=== PATIENT | male | born 1970 | race Caucasian/White ===

== ENCOUNTER 2021-07-07 21:57 | Inpatient (IN) | payer BC ==
[~2021-07-07] VITALS: Ht 185.4 cm; Wt 93.9 kg
[2021-07-07 22:22] LABS: HEMOGLOBIN 16.7 gm/dl (14.0-17.5); RED BLOOD COUNT 5.15 M/UL (4.20-5.50); WHITE BLOOD COUNT 5.9 K/UL (4.5-11.0)
[2021-07-08] MEDS ORDERED: PROAIR DIGIHAL90 MCG INH (02:57)
[2021-07-08] MEDS ORDERED: DOXYCYCLINE MO100 MG PO (02:59)
[2021-07-09 05:58] LABS: HEMOGLOBIN 15.2 gm/dl (14.0-17.5); RED BLOOD COUNT 4.92 M/UL (4.20-5.50); WHITE BLOOD COUNT 6.4 K/UL (4.5-11.0)
[2021-07-09 06:33] LABS: BUN/CREATININE RATIO 22 (0-10)
[2021-07-10 06:58] LABS: HEMOGLOBIN 14.8 gm/dl (14.0-17.5); RED BLOOD COUNT 4.74 M/UL (4.20-5.50); WHITE BLOOD COUNT 5.5 K/UL (4.5-11.0)
[2021-07-10 07:23] LABS: BUN/CREATININE RATIO 27 (0-10)
[2021-07-11 05:46] LABS: HEMOGLOBIN 15.1 gm/dl (14.0-17.5); RED BLOOD COUNT 4.94 M/UL (4.20-5.50); WHITE BLOOD COUNT 5.6 K/UL (4.5-11.0)
[2021-07-11 06:22] LABS: BUN/CREATININE RATIO 35 (0-10)
[2021-07-12 05:30] LABS: HEMOGLOBIN 15.6 gm/dl (14.0-17.5); RED BLOOD COUNT 5.24 M/UL (4.20-5.50)
[2021-07-12 05:31] LABS: WHITE BLOOD COUNT 8.1 K/UL (4.5-11.0)
[2021-07-12 08:51] LABS: BUN/CREATININE RATIO 45 (0-10)
[2021-07-13 03:59] LABS: HEMOGLOBIN 15.1 gm/dl (14.0-17.5); RED BLOOD COUNT 5.08 M/UL (4.20-5.50)
[2021-07-13 04:31] LABS: BUN/CREATININE RATIO 42 (0-10)
[2021-07-14 05:46] LABS: HEMOGLOBIN 14.8 gm/dl (14.0-17.5); RED BLOOD COUNT 4.98 M/UL (4.20-5.50)
[2021-07-14 05:47] LABS: WHITE BLOOD COUNT 14.4 K/UL (4.5-11.0)
[2021-07-14 06:02] LABS: BUN/CREATININE RATIO 25 (0-10)
[2021-07-14 20:22] LABS: BUN/CREATININE RATIO 21 (0-10)
[2021-07-15 05:28] LABS: HEMOGLOBIN 13.4 gm/dl (14.0-17.5)
[2021-07-15 05:32] LABS: RED BLOOD COUNT 4.29 M/UL (4.20-5.50); WHITE BLOOD COUNT 8.8 K/UL (4.5-11.0)
[2021-07-15 05:49] LABS: BUN/CREATININE RATIO 28 (0-10)
[2021-07-16 05:15] LABS: HEMOGLOBIN 14.3 gm/dl (14.0-17.5); RED BLOOD COUNT 4.53 M/UL (4.20-5.50); WHITE BLOOD COUNT 10.3 K/UL (4.5-11.0)
[2021-07-16 06:02] LABS: BUN/CREATININE RATIO 36 (0-10)
[2021-07-17 05:35] LABS: HEMOGLOBIN 13.2 gm/dl (14.0-17.5); RED BLOOD COUNT 4.23 M/UL (4.20-5.50); WHITE BLOOD COUNT 13.7 K/UL (4.5-11.0)
[2021-07-17 05:59] LABS: BUN/CREATININE RATIO 48 (0-10)
--- NOTE | 2021-07-17 09:23 | NUR ---
PATIENT HAS SUBCUTANEOUS AIR NOTED IN BILATERAL CHEST AND RIGHT UPPER EXTREMITY. PATIENT HAS ASYMETRICAL CHEST EXPANSION WITH RESPIRATIONS. DR. CORTEZ NOTIFIED AND IS COMING TO ASSESS PATIENT.
[2021-07-18 05:29] LABS: HEMOGLOBIN 13.3 gm/dl (14.0-17.5); RED BLOOD COUNT 4.29 M/UL (4.20-5.50); WHITE BLOOD COUNT 12.5 K/UL (4.5-11.0)
[2021-07-18 05:51] LABS: BUN/CREATININE RATIO 43 (0-10)
--- NOTE | 2021-07-18 11:06 | NUR ---
1040: PATIENT PUT IN SUPINE POSTITION. NO EVIDENCE OF SKIN BREAKDOWN NOTED IN ON AREAS OF PRESSURE. +1 EDEMA NOTED TO THE LEFT EYE AND +2 EDEMA NOTED TO THE RIGHT EYE. SUBCUTANEOUS AIR IN THE UPPER CHEST AND ARMS HAS DECREASED. ART LINE RE-ZERO'D. VITALS ARE STABLE. CHEST X-RAY HAS BEEN OBTAINED. ABG TO BE OBTAINED AT 1200. DR. QURESHI AWARE OF SUPINATION AND WAS AT BEDSIDE FOR THE PROCEDURE.
[2021-07-19 04:48] LABS: HEMOGLOBIN 12.4 gm/dl (14.0-17.5); RED BLOOD COUNT 4.04 M/UL (4.20-5.50)
[2021-07-19 05:07] LABS: BUN/CREATININE RATIO 50 (0-10)
[2021-07-20 04:36] LABS: HEMOGLOBIN 12.8 gm/dl (14.0-17.5); RED BLOOD COUNT 4.13 M/UL (4.20-5.50); WHITE BLOOD COUNT 12.9 K/UL (4.5-11.0)
[2021-07-20 05:30] LABS: BUN/CREATININE RATIO 59 (0-10)
[2021-07-20 22:17] LABS: ACINETOBACTER BAUMANNII Not Detected (Negative); CANDIDA ALBICANS Not Detected (Negative); CANDIDA KRUSEI Not Detected (Negative); CANDIDA TROPICALIS Not Detected (Negative); ENTEROCOCCUS Not Detected (Negative); ESCHERICHIA COLI Not Detected (Negative); HAEMOPHILUS INFLUENZAE Not Detected (Negative); KLEBSIELLA OXYTOCA Not Detected (Negative); KLEBSIELLA PNEUMONIAE Not Detected (Negative); KPC-CARBAPENEM-RESISTANCE GENE Not Detected (Negative); PROTEUS Not Detected (Negative); PSEUDOMONAS AERUGINOSA Not Detected (Negative); SERRATIA MARCESANS Not Detected (Negative); STAPHYLOCOCCUS AUREUS Not Detected (Negative); STREP AGALACTIAE (GROUP B) Not Detected (Negative); STREP PYOGENES (GROUP A) Not Detected (Negative); STREPTOCOCCUS Not Detected (Negative); vanA/B (VANCOMYCIN RESIST GENE Not Detected (Negative)
[2021-07-20 23:42] LABS: STAPHYLOCOCCUS DETECTED (Negative); mecA (METHICILLIN RESIST GENE DETECTED (Negative)
[2021-07-21 05:39] LABS: HEMOGLOBIN 12.5 gm/dl (14.0-17.5); RED BLOOD COUNT 4.08 M/UL (4.20-5.50); WHITE BLOOD COUNT 12.2 K/UL (4.5-11.0)
[2021-07-21 06:17] LABS: BUN/CREATININE RATIO 60 (0-10)
== END 2021-07-21 17:20 | disposition short-term general hospital (02) | DRG 207 ==
LOC: ER1 21:57 → CDU 07-08 00:14 → CCU 07-08 00:14 → M/S 07-08 00:14 → CCU 07-10 15:55
PROVIDERS: Emergency Medicine; Internal Medicine; ADMIT Internal Medicine
PROC: 3E0333Z Introduction of Anti-inflammatory into Peripheral Vein, Percutaneous Approach (ICD-10-PCS; principal; 2021-07-07)
PROC: XW033E5 Introduction of Remdesivir Anti-infective into Peripheral Vein, Percutaneous Approach, New Technology Group 5 (ICD-10-PCS; 2021-07-08)
PROC: 5A0945A Assistance with Respiratory Ventilation, 24-96 Consecutive Hours, High Flow/Velocity Cannula (ICD-10-PCS; 2021-07-08)
PROC: 8E0ZXY6 Isolation (ICD-10-PCS; 2021-07-08)
PROC: 5A09457 Assistance with Respiratory Ventilation, 24-96 Consecutive Hours, Continuous Positive Airway Pressure (ICD-10-PCS; 2021-07-10)
PROC: 0BH17EZ Insertion of Endotracheal Airway into Trachea, Via Natural or Artificial Opening (ICD-10-PCS; 2021-07-13)
PROC: 5A1955Z Respiratory Ventilation, Greater than 96 Consecutive Hours (ICD-10-PCS; 2021-07-13)
PROC: 3E033XZ Introduction of Vasopressor into Peripheral Vein, Percutaneous Approach (ICD-10-PCS; 2021-07-13)
PROC: 02HV33Z Insertion of Infusion Device into Superior Vena Cava, Percutaneous Approach (ICD-10-PCS; 2021-07-13)
PROC: B548ZZA Ultrasonography of Superior Vena Cava, Guidance (ICD-10-PCS; 2021-07-13)
PROC: 03HY32Z Insertion of Monitoring Device into Upper Artery, Percutaneous Approach (ICD-10-PCS; 2021-07-17)
DX: U07.1 COVID-19 (principal); J95.811 Postprocedural pneumothorax; J12.82 Pneumonia due to coronavirus disease 2019; J80 Acute respiratory distress syndrome; E87.3 Alkalosis; J95.859 Other complication of respirator [ventilator]; E87.1 Hypo-osmolality and hyponatremia; M62.82 Rhabdomyolysis; E87.2 Acidosis; N17.9 Acute kidney failure, unspecified; Z99.11 Dependence on respirator [ventilator] status; J94.8 Other specified pleural conditions; T81.82XA Emphysema (subcutaneous) resulting from a procedure, initial encounter; I10 Essential (primary) hypertension; F41.9 Anxiety disorder, unspecified; E87.5 Hyperkalemia; E66.9 Obesity, unspecified; E86.0 Dehydration; K59.00 Constipation, unspecified; R74.01 Elevation of levels of liver transaminase levels; J98.2 Interstitial emphysema; Z87.442 Personal history of urinary calculi; Z68.27 Body mass index [BMI] 27.0-27.9, adult
CPT/HCPCS: 36415; 36600; 71045; 71046; 71250; 74018; 80048; 80053; 80202; 82550; 82553; 82728; 82803; 82962; 83605; 83615; 83690; 83735; 83874; 83880; 84100; 84132; 84439; 84443; 84484; 84550; 85025; 85027; 85379; 85384; 85610; 85730; 86140; 87040; 87070; 87077; 87081; 87150; 87186; 87205; 93005; 93970; 94002; 94003; 94640; 94660; 94760; 96374; 96375; 99285; A6212; C9113; J0360; J0456; J0610; J0692; J0696; J1100; J1205; J1650; J1940; J2060; J2185; J2250; J2405; J2704; J3010; J3370; J7030; J7040; J7050; J7070; Q9967; U0002